=== PATIENT | female | born 1955 | race Hispanic/Latino ===

== ENCOUNTER 2018-05-30 03:14 | Emergency (ER) | payer BC ==
[~2018-05-30 03:14] MED LIST: ALBU0.63 IH; ASPI-555 PO; LISI10TA7 PO; MVIT PO
[2018-05-30] MEDS ORDERED: IPRATROPIUM/ALBUTEROL SULFATE 3 ML SOLUTION IH ONE (04:07)
[2018-05-30 04:23] LABS: BASOPHILS % (AUTO) 0.7 % (0.0-5.0); EOSINOPHILS % (AUTO) 0.2 % (0.0-8.0); HEMATOCRIT 45.1 % (36-48); LYMPHOCYTES % (AUTO) 39.5 % (21.0-51.0); MEAN CORPUSCULAR HEMOGLOBIN 27.3 pg (27.0-33.0); MEAN CORPUSCULAR HGB CONC 32.8 g/dL (32.0-36.0); MEAN CORPUSCULAR VOLUME 83.2 fL (79-99); MONOCYTES % (AUTO) 14.3 % (3.0-13.0); NEUTROPHILS % (AUTO) 45.3 % (40.0-77.0); NUCLEATED RED BLOOD CELLS 0.2 % (0.0-0.19); PLATELET COUNT (AUTO) 228 K/uL (130-400); RED BLOOD CELL COUNT(AUTO) 5.42 MIL/uL (4.00-5.50); RED CELL DISTRIBUTION WIDTH 14.4 % (11.0-15.5)
[2018-05-30 04:27] LABS: CREATININE 0.9 mg/dL (0.5-1.5); POTASSIUM 4.8 mmol/L (3.5-5.1)
[2018-05-30] MEDS ORDERED: ONDANSETRON HCL 4 MG/2 ML VIAL ONE (04:27)
[2018-05-30] MEDS ORDERED: METHYLPREDNISOLONE SOD SUCC 125MG/2ML VIAL ONE (04:27)
[2018-05-30 04:28] LABS: INR 0.96 (0.85-1.15); PARTIAL THROMBOPLASTIN TIME 27.6 SEC (26.3-35.5); PROTHROMBIN TIME 10.1 SEC (9.6-11.6)
[2018-05-30 04:31] LABS: APPEARANCE,URINE Clear (CLEAR); BILIRUBIN,URINE Negative (NEGATIVE); COLOR,URINE Yellow (YELLOW); GLUCOSE, URINE (UA) Negative (NEGATIVE); KETONES,URINE Trace mg/dL (NEGATIVE); LEUKOCYTE ESTERASE ,URINE Small (NEGATIVE); NITRATE,URINE Negative (NEGATIVE); OCCULT BLOOD,URINE Negative (NEGATIVE); PROTEIN,URINE Trace (NEGATIVE)
[2018-05-30 04:37] LABS: ALBUMIN 3.6 g/dL (3.5-5.0); BILIRUBIN,TOTAL 0.8 mg/dL (0.2-1.0); TOTAL PROTEIN, SERUM 8.3 g/dL (6.0-8.3)
[2018-05-30 04:43] LABS: B-TYPE NATRIURETIC PEPTIDE 11 pg/mL (0-100)
[2018-05-30 04:55] LABS: RBC,URINE 0-1 /HPF (0-1)
[2018-05-30 04:56] LABS: BACTERIA,URINE Few /HPF (None Seen)
[2018-05-30] MEDS ORDERED: ALBUTEROL SULFATE 0.083% 2.5 MG/3 ML INH IH ONE (05:37)
== END 2018-05-30 06:08 | disposition home or self-care (01) ==
LOC: EDH 03:14
DX: J45.909 Unspecified asthma, uncomplicated (principal); E86.9 Volume depletion, unspecified; I10 Essential (primary) hypertension; Z90.710 Acquired absence of both cervix and uterus
CPT/HCPCS: 36415; 71046; 80053; 81001; 83880; 84484; 85025; 85610; 85730; 87040 ×2; 87804 ×2; 94640 ×2; 96374; 96375; 99285; J2405; J2930

== ENCOUNTER 2021-11-22 20:27 | Emergency (ER) | payer OTHER ==
[~2021-11-22] VITALS: Ht 162.6 cm; Wt 90.3 kg
[~2021-11-22 20:27] MED LIST changes: -ASPI-555 PO; +ASPI-556 PO; +LISI10TA24 PO; -LISI10TA7 PO
[2021-11-22 20:46] LABS: BASOPHILS % (AUTO) 0.5 % (0.0-5.0); HEMATOCRIT 40.4 % (36-48); LYMPHOCYTES % (AUTO) 28.6 % (21.0-51.0); MEAN CORPUSCULAR HEMOGLOBIN 27.9 pg (27.0-33.0); MEAN CORPUSCULAR HGB CONC 32.4 g/dL (32.0-36.0); MEAN CORPUSCULAR VOLUME 86.1 fL (79-99); MONOCYTES % (AUTO) 7.1 % (3.0-13.0); NEUTROPHILS % (AUTO) 62.3 % (40.0-77.0); PLATELET COUNT (AUTO) 249 K/uL (130-400); RED BLOOD CELL COUNT(AUTO) 4.69 MIL/uL (4.00-5.50); RED CELL DISTRIBUTION WIDTH 13.5 % (11.0-15.5); WHITE BLOOD COUNT (AUTO) 11.1 K/uL (4.8-10.8)
[2021-11-22 20:56] LABS: CREATININE 0.9 mg/dL (0.5-1.5); POTASSIUM 4.5 mmol/L (3.5-5.1)
[2021-11-22 21:06] LABS: ALBUMIN 3.8 g/dL (3.5-5.0); TOTAL PROTEIN, SERUM 7.3 g/dL (6.0-8.3)
[2021-11-23 00:19] VITALS: BP 143/65
== END 2021-11-23 00:46 | disposition home or self-care (01) ==
LOC: EDH 20:27
DX: F43.0 Acute stress reaction (principal); R07.89 Other chest pain; I10 Essential (primary) hypertension; Z79.82 Long term (current) use of aspirin; Z79.899 Other long term (current) drug therapy
CPT/HCPCS: 36415; 80053; 84484; 85025; 93005

== ENCOUNTER 2023-12-11 11:09 | Emergency (ER) | payer OTHER ==
[~2023-12-11] VITALS: Ht 162.6 cm; Wt 90.3 kg
[2023-12-11] MEDS: KETOROLAC 15MG/ML VIAL (15MG/ML) IV ONE (12:21)
[2023-12-11] MEDS: ONDANSETRON 4MG INJ IVP ONE (12:21)
[2023-12-11] MEDS: MORPHINE 4 MG SYG IVP ONE (12:22)
[2023-12-11] MEDS: PROPOFOL 10 MG/ML 20ML VIAL IV SCH (12:30)
[2023-12-11] MEDS ORDERED: PROPOFOL 1000 MG/100 ML IV PRN (12:30)
[2023-12-11] MEDS: PROPOFOL 10 MG/ML 20ML VIAL IV ONE (13:22)
[2023-12-11] MEDS ORDERED: NAPR-1196 PO (13:33)
[2023-12-11 14:35] VITALS: BP 124/58; PULSE 62; RESP 12; O2SAT 98
== END 2023-12-11 14:38 | disposition home or self-care (01) ==
LOC: EDH 11:09
DX: S52.612A Displaced fracture of left ulna styloid process, initial encounter for closed fracture (principal); S52.512A Displaced fracture of left radial styloid process, initial encounter for closed fracture; I10 Essential (primary) hypertension; Z79.899 Other long term (current) drug therapy; Z79.82 Long term (current) use of aspirin; Z90.710 Acquired absence of both cervix and uterus; Z98.890 Other specified postprocedural states; W01.0XXA Fall on same level from slipping, tripping and stumbling without subsequent striking against object, initial encounter; Y93.89 Activity, other specified; Y92.89 Other specified places as the place of occurrence of the external cause; Y99.8 Other external cause status
CPT/HCPCS: 25605; 99152; 99153; 99285; 73100; 73090; 73110; 96374; 96375; J2704; J2405; J2270; J1885; G0500; J3490

== ENCOUNTER 2024-08-20 13:25 | Observation (INO) | payer OTHER ==
[~2024-08-20] VITALS: Ht 162.6 cm; Wt 84.4 kg
[~2024-08-20 13:25] MED LIST changes: +NAPR-1196 PO
[2024-08-20] MEDS: ketOROlac 15MG/ML VIAL (15MG/ML) IV ONE (14:01)
[2024-08-20 14:06] LABS: APPEARANCE,URINE CLEAR (CLEAR); BILIRUBIN,URINE NEGATIVE (NEGATIVE); GLUCOSE, URINE (UA) NEGATIVE (NEGATIVE); KETONES,URINE NEGATIVE (NEGATIVE); LEUKOCYTE ESTERASE ,URINE NEGATIVE Leu/uL (NEGATIVE); NITRATE,URINE NEGATIVE (NEGATIVE); OCCULT BLOOD,URINE NEGATIVE (NEGATIVE); PROTEIN,URINE NEGATIVE (NEGATIVE); UROBILINOGEN,URINE 0.2 mg/dL (0.2-1.0)
[2024-08-20 14:07] LABS: BASOPHILS # (AUTO) 0.02 K/uL (0.00-0.20); BASOPHILS % (AUTO) 0.3 % (0.0-5.0); EOSINOPHILS # (AUTO) 0.01 K/uL (0.00-0.70); EOSINOPHILS % (AUTO) 0.1 % (0.0-8.0); IMMATURE GRANULOCYTE ABSOLUTE 0.01 K/uL (0-1); LYMPHOCYTES # (AUTO) 1.8 K/uL (1.0-4.8); MEAN CORPUSCULAR HEMOGLOBIN 27.9 pg (27.0-33.0); MEAN CORPUSCULAR VOLUME 79.7 fL (79-99); MONOCYTES # (AUTO) 0.7 K/uL (0.1-1.0); MONOCYTES % (AUTO) 9.5 % (3.0-13.0); NEUTROPHILS # (AUTO) 5.2 K/uL (1.8-7.7); PLATELET COUNT (AUTO) 231 K/uL (130-400); RED BLOOD CELL COUNT(AUTO) 5.02 MIL/uL (4.00-5.50); RED CELL DISTRIBUTION WIDTH 13.2 % (11.0-15.5); WHITE BLOOD COUNT (AUTO) 7.8 K/uL (4.8-10.8)
[2024-08-20 14:10] LABS: ADD UA MICROSCOPIC NO; COLOR,URINE LIGHT-YELLOW (YELLOW)
--- NOTE | 2024-08-20 14:11 | ERN ---
General Chief Complaint: Cough Stated Complaint: FLU Time Seen by MD: 13:25 History of Present Illness Initial Comments 69-year-old female who presents for generalized weakness. She had influenza about a week ago, she was positive initially had fevers. She reports that since then she continues with cough and generalized weakness and fatigue. She has been p.o. tolerant. No vomiting no diarrhea. Allergies: Coded Allergies: No Known Drug Allergies (Unverified Allergy, Unknown, 06/21/15) Home Meds Reported Medications Atorvastatin Calcium (LIPITOR) 10 Mg Tab, 1 TAB PO DAILY for 30 Days, #30 TAB 0 Refills 08/20/24 L.acidoph & Paracasei,B.lactis (Probiotic) 10 Billion Cell Capsule, 1 CAP PO DAILY for 10 Days, #30 CAP 0 Refills 08/20/24 Lisinopril (Lisinopril) 20 Mg Tablet, 20 MG PO DAILY, TAB 08/20/24 Discontinued Reported Medications Albuterol Sulfate (Albuterol Sulfate) 0.63 Mg/3 Ml Vial.neb, 0.63 MG IH QID, INH 09/03/15 Multivitamins,Therapeutic (Multivitamin Tablet) 1 Tab Tab, 1 TAB PO DAILY, TAB 06/21/15 Aspirin (Aspir 81) 81 Mg Tablet.dr, 81 MG PO DAILY, TAB 06/21/15 Lisinopril (Lisinopril) 10 Mg Tablet, 10 MG PO DAILY, TAB 06/21/15 Past Medical History Past Medical History: High Cholesterol, Hypertension Past Surgical History: Hysterectomy Surgical History Other: BACK SURGERY Social History Social History: Other ROS Dictation CONSTITUTIONAL: Fatigue and weakness HEAD/FACE: No signs of trauma. EENT: No eye pain, no blurred vision, no tearing, no double vision, no ear pain, no ear discharge, no nose pain, no nasal congestion, no throat pain, no throat swelling, no mouth pain. RESPIRATORY: No cough, no orthopnea, no SOB, no stridor, no wheezing. CARDIOVASCULAR: No chest pain, no edema, no palpitations, no syncope. GASTROINTESTINAL/ABDOMINAL: No abdominal pain, no constipation, no diarrhea, no nausea, no vomiting. GENITOURINARY: No abnormal discharge, no dysuria, no frequent urination, no hematuria. No complaints of pain in the genitals. MUSCULOSKELETAL: No back pain, no gout, no joint pain, no joint swelling, no muscle pain, no muscle stiffness, no neck pain. INTEGUMENTARY: No change in color, no change in hair/nails, no dryness, no lesion, no lumps, no rash. NEUROLOGICAL/PSYCH: No anxiety, not depressed, no emotional problem, no headache, no numbness, no pre-existing deficit, no history of seizures, no tremors, no weakness. HEMATOLOGIC/LYMPHATIC: Not anemic, no history of blood clots, no apparent bleeding, no bruising, glands not swollen. All Systems Negative, Except as Noted. Physical Exam Physical Exam Dictation VITAL SIGNS: Reviewed. GENERAL APPEARANCE: Alert, oriented x3, no acute distress HEAD AND FACE: Non-traumatic. EYES: PERRL, pink conjunctivas, eyelid no trauma, anterior chamber clear. EARS: Pinnas intact and no signs of trauma or erythema. Ear canals clear and no discharge. TMs no erythema. NOSE: No discharge, no bleeding. OROPHARYNX: Mouth normal, teeth no caries, tongue pink. Pharynx clear, no elodia thema. Tonsils no exudates, no abscesses noted. Mucous membrane moist. NECK: Supple, non-tender, no thyromegaly, no masses, no JVD, no bruits. BREAST: Deferred. CHEST: No tenderness, no crepitus, no paradoxical movement, no retractions. LUNGS: Clear, well-ventilated, symmetric, no rales, no wheezing, no rhonchi, no stridor, good breath sounds bilaterally. HEART: Regular rate, regular rhythm, no murmur, no gallops. VASCULAR: No peripheral edema. ABDOMEN: Soft, positive bowel sounds, nondistended, no guarding, nontender, no rebound, no masses no hepatomegaly, no splenomegaly, no Patel's sign, no hernias. RECTAL: Deferred. GENITAL: Deferred. NEUROLOGICAL: Normal speech, gross motor function intact, gross sensory function intact. MUSCULOSKELETAL: Neck nontender, full range of motion, back nontender, full range of motion. EXTREMITIES: Nontender, full range of motion. SKIN: Color pink, dry, no turgor, no rash, no lacerations, no abrasions, no contusions. LYMPHATICS: Deferred. Results Laboratory and Microbiology Lab and Micro Result [facility] CC: Fatigue dizziness weakness Historian: Patient Comorbidities: Dyslipidemia, hypertension, hysterectomy Limitations by social determinants of health: None Differential diagnosis: Dehydration electrolyte abnormality pneumonia, other. Vital signs: Stable remained stable your Clinical exam is unremarkable other than generalized fatigue and weakness Labs (independently ordered and interpreted by me): The CBC is normal. Electrolytes show sodium 122, chloride 87, potassium 2.9, consistent with dehydration. Rest of the electrolytes are stable, troponin is stable, CRP is stable BNP stable procalcitonin stable. Flu SARS negative. CXR (independently interpreted by me): No cardiomegaly focal infiltrates or pleural effusion. Treatment in ED: IV normal saline, IV potassium Plan: We will admit for hyponatremia, dehydration, hy pokalemia correction. Patient was agreeable with the plan Consultation: Hospitalist for admission. ED Course DX & DISP Disposition: Inpatient Departure Impression: Primary Impression: Hyponatremia Additional Impressions: Hypokalemia, Dehydration Critical Time: 30 minutes (Critical Care Procedure NoteAuthorized and Performed by: meTotal critical care time: Approximately 36 minutesDue to a high probability of clinically significant, life threatening deterioration, the patient required my highest level of preparedness to intervene emergently and I personally spent this critical care time directly and personally managing the patient. This critical care time included obtaining a history; examining the patient; pulse oximetry; ordering and review of studies; arranging urgent treatment with development of a management plan; evaluation of patient's response to treatment; frequent reassessment; and, discussions with other providers.This critical care time was performed to assess and manage the high probability of imminent, life-threatening deterioration that could result in multi-organ failure. It was exclusive of separately billable procedures and treating other patients and teaching time.Please see MDM section and the rest of the note for further information on patient assessment and treatment.) Condition: Stable Referrals: EUNICE SANDOVAL MD (PCP) FRANKLIN BAXTER DO Aug 20, 2024 14:11
--- NOTE | 2024-08-20 14:14 | HMCIMG ---
Exam Type: CHEST 1VW Clinical Information: cough Comparison: None Findings: The lungs are clear of infiltrates. The heart is normal in size. The bony and soft tissue structures of the chest are unremarkable. Impression: Clear lungs.
[2024-08-20 14:23] LABS: CREATININE 0.9 mg/dL (0.5-1.0); MAGNESIUM 1.8 mg/dL (1.80-2.40)
[2024-08-20 14:23] LABS: COVID19 (SARS ANTIGEN RAPID) PRESUMPTIVE NEGATIVE (NEGATIVE); INFLUENZA TYPE A Negative For Type A (NEGATIVE); INFLUENZA TYPE B Negative For Type B (NEGATIVE)
[2024-08-20 14:26] LABS: B-TYPE NATRIURETIC PEPTIDE 26 pg/mL (0-100)
[2024-08-20 14:28] LABS: POTASSIUM 2.9 mmol/L (3.5-5.1)
[2024-08-20] MEDS: 0.9%NACL 1000ML 1,000 ML IV SCH (14:37)
--- NOTE | 2024-08-20 15:13 | EKG ---
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
[2024-08-20] MEDS: PoTASSium chloRIDE 20MEQ/100ML 100 ML IV PRN (15:21)
[2024-08-20] MEDS ORDERED: acetaMINOPHEN 650 MG SUPPOSITORY RC PRN (15:30)
--- NOTE | 2024-08-20 15:34 | HP ---
[facility] HISTORY & PHYSICAL Date Patient Seen: Aug 20, 2024 Time of Visit: 15:34 Supervising Physician: Ravinder Arauz MD Primary Care Physician: Rolando Vasques MD Outpatient Specialists: [ ] Inpatient Consults: NONE PROBLEM LIST: Severe hypokalemia, POA Electrolyte derangement (Hyponatremia, Hypochloremia) Dehydration POA Suspected superimposed bacterial cap, POA Essential hypertension Hyperlipidemia Hepato steatosis Recent influenza infection one week ago s/p 3 days of Tamiflu (does not tolerate Tamiflu per pt) Obesity BMI of 31.9 HPI: This is a 69-year-old obese female with a past medical history of essential hypertension and elevated cholesterol She reports approximately four days ago she was diagnosed with the influenza and was given Tamiflu as prescription for outpatient. As per patient she could not complete a total treatment of the Tamiflu for five days due to did not tolerate the side effects which were genera lized body weakness dizziness and nausea. She presented to the ED today for evaluation of generalized weakness. She reports one week ago initially she had fever, fatigue and generalized weakness continue to worsened. As per patient she has been unable to tolerate p.o. food, but denies any nausea vomiting or diarrhea. On arrival to the ED patient was hemodynamically stable and afebrile saturating 97% on room air. CBC was unremarkable but on chemistry potassium was 2.9 chloride 87 sodium 122 and glucose 128 mg/dL. Urinalysis unremarkable. Influenza and COVID-19 negative. Per ED physician would like patient admitted for severe hypokalemia and dehydration. On assessment patient is awake alert and oriented x3. She had a nonproductive cough and sore throat. She reports generalized weakness. Denies nausea vomiting or diarrhea. She denies any chest pain palpitations or shortness for breath at this time. I informed patient on current clinical findings and reason for admission. Patient agrees with admission and plan of care. She will be admitted to medical-surgical with telemetry monitoring due to severe hypokalemia and replace electrolytes as needed. We will hydrate patient with the NS IV fluids. Patient has been both verbalized understanding. Home medications will to lisinopril and atorvastatin has been resumed. Patient will be admitted under observation likely to be discharged in the next 24-48 hours. PAST MEDICAL HX: see above PAST SURGICAL HX: noncontributory SOCIAL HISTORY: No tobacco, ETOH, or illicit drug use Coded Allergies: No Known Drug Allergies (Unverified Allergy, Unknown, 06/21/15) REVIEW OF SYSTEMS: 12 point ROS reviewed with patient. Pertinent positives mentioned above. Otherwise negative. PHYSICAL EXAM: GENERAL: alert, weak, awake oriented x 3 HEENT: EOMI, Sclera non icteric, moist mucosa NECK: Supple, no JVD, trachea midline LUNGS: Rhonchi breath sounds bilaterally. No wheezes HEART: Regular rate and rhythm. Normal S1 and S2, without murmurs ABD: Abdomen soft, nontender. Bowel sounds present EXT: No clubbing cyanosis or edema NEURO: Alert and oriented to person, follows commands Vital Signs (last 8hr) Date Time Temp Pulse Resp B/P (MAP) Pulse Ox O2 Delivery O2 Flow Rate FiO2 08/20/24 13:46 97.5 82 16 119/74 97 Room Air* 0 21 08/20/24 13:35 97.5 82 16 119/74 97 Room Air 0 LABS: Hematology Labs: Test 08/20/24 14:00 Range/Units White Blood Count 7.8 4.8-10.8 K/uL Red Blood Count 5.02 4.00-5.50 MIL/uL Hemoglobin 14.0 12.0-16.0 g/dL Hematocrit 40.0 36-48 % Mean Corpuscular Volume 79.7 79-99 fL Mean Corpuscular Hemoglobin 27.9 27.0-33.0 pg Mean Corpuscular Hemoglobin Concent 35.0 32.0-36.0 g/dL Red Cell Distribution Width 13.2 11.0-15.5 % Platelet Count 231 130-400 K/uL Mean Platelet Volume 9.6 7.5-10.5 fL Immature Granulocyte % (Auto) 0.1 0-1 % Neutrophils (%) (Auto) 67.0 40.0-77.0 % Lymphocytes (%) (Auto) 23.0 21.0-51.0 % Monocytes (%) (Auto) 9.5 3.0-13.0 % Eosinophils (%) (Auto) 0.1 0.0-8.0 % Basophils (%) (Auto) 0.3 0.0-5.0 % Neutrophils # (Auto) 5.2 1.8-7.7 K/uL Lymphocytes # (Auto) 1.8 1.0-4.8 K/uL Monocytes # (Auto) 0.7 0.1-1.0 K/uL Eosinophils # (Auto) 0.01 0.00-0.70 K/uL Basophils # (Auto) 0.02 0.00-0.20 K/uL Absolute Immature Granulocyte (auto 0.01 0-1 K/uL Nucleated Red Blood Cells 0.0 0.0-0.19 % Chemistry Labs: Test 08/20/24 14:00 Range/Units Sodium Level 122 L 136-145 mmol/L Potassium Level 2.9 *L 3.5-5.1 mmol/L Chloride Level 87 *L 101-111 mmol/L Carbon Dioxide Level 32 21-32 mmol/L Blood Urea Nitrogen 11 7-18 mg/dL Creatinine 0.9 0.5-1.0 mg/dL Glomerular Filtration Rate Calc 70 >90 mL/min Random Glucose 128 H 70-105 mg/dL Total Calcium 8.6 8.5-10.1 mg/dL Magnesium Level 1.80 1.80-2.40 mg/dL Total Creatine Kinase 41 21-232 U/L Troponin I High Sensitivity 4.9 4-50 ng/L C-Reactive Protein, Quantitative 2.50 0.5-3.0 mg/L B-Type Natriuretic Peptide 26 0-100 pg/mL Procalcitonin < 0.05 L 0.05-0.5 ng/mL DIAGNOSTICS / RADIOLOGY RESULTS: IMAGING REPORT Signed PATIENT: PATY TEJEDA MR#: [id number] : 1955 SEX: F AGE: 69 LOCATION: [facility] ORDER [id number] STATUS: REG ER REPORT#: [id number] SERVICE [id number] REASON: cough ORDERING PHYSICIAN: FRANKLIN BAXTER DO PROCEDURE: CXR1VW - CHEST 1VW Exam Type: CHEST 1VW Clinical Information: cough Comparison: None Findings: The lungs are clear of infiltrates. The heart is normal in size. The bony and soft tissue structures of the chest are unremarkable. Impression: Clear lungs. DICTATED BY: MATTY AGUIAR MD DATE: 08/20/241410 ELECTRONICALLY SIGNED BY: MATTY AGUIAR MD DATE: 08/20/241413 [ ] PLAN NS at 75ml/HR Potassium goal of 4 Magnesium goal of 2 TSH and hemoglobin A1c in the morning Morning labs including CBC and BNP Monitor for fevers Empiric antibiotic with azithromycin and Rocephin for suspected superimposed bacterial pneumonia Robitussin DM q.6 hours p.r.n. for cough Cepacol sore throat lozenge q.4 hours p.r.n. NEURO: Minimize central acting medications as possible. Maintain fall precautions, adequate lighting during the day PULMONARY: Supplemental 02 as needed. Maintain aspiration precautions at all times CARDIOVASCULAR: Follow hemodynamics. Vital signs per facility protocol GI & NUTRITION: Continue with nutritional support. Continue stool softeners and laxatives as needed. KIDNEYS & ELECTROLYTES: Strict monitoring of intake, output and overall fluid balance. Avoid nephrotoxic medications to the extent possible. Medications to be dosed according to renal function. Monitor electrolytes and replace as needed ENDOCRINE: Maintain blood glucose between 100-180 at all times. Hypoglycemia protocol in place INFECTIOUS DISEASE: Trend temperature, WBC and procalcitonin level Follow cultures, deescalate antibiotics as soon as possible. Panculture if new onset fever ONCOLOGY/HEMATOLOGY/COAGULATION: Monitor for s/s of bleeding Monitor hemoglobin, coagulation studies as needed SKIN: Pressure ulcer prevention per facility protocol Specialty mattress ORTHO/REHAB: Continue PT/OT Prophylaxis: Continue GI and DVT prophylaxis Code Status: Full Resuscitation Disposition: TBD Other: Total patient care time exceeds 35 minutes excluding all procedures. DEBBIE OSEI Aug 20, 2024 15:34
[2024-08-20] MEDS ORDERED: PoTASSium chloRIDE 20MEQ/100ML 100 ML IV PRN ×2 (16:00)
[2024-08-20] MEDS ORDERED: PoTASSium chl 10% ELIXIR 20MEQ 20 MEQ/15 ML UDCUP PO PRN (16:00)
--- NOTE | 2024-08-20 16:18 | NUR ---
report given to Rocío SMITH patient to go to room 327
[2024-08-20 16:30] VITALS: BP 131/63; PULSE 70; RESP 20; TEMP 98.3
[2024-08-20] MEDS: SODIUM CHLORIDE 3% FOR INHALATION 4 ML/AMP VIAL.NEB IH ONE (16:49)
[2024-08-20] MEDS ORDERED: L.AC1CAP6 PO (17:07)
[2024-08-20] MEDS ORDERED: LISI20TA24 PO (17:07)
[2024-08-20] MEDS ORDERED: ATOR10 PO (17:09)
[2024-08-20 17:11] VITALS: O2SAT 98
[2024-08-20] MEDS: CEFTRIAXONE 2GM VIAL IVPB SCH (18:13)
[2024-08-20] MEDS: MAGNESIUM 2GM PREMIX 50ML 50 ML IV PRN (18:15)
[2024-08-20] MEDS: AZITHROMYCIN 250 MG TABLET PO ONE (18:15)
[2024-08-20] MEDS: PoTASSium chloRIDE 20MEQ ER 20 MEQ ERTAB PO PRN (18:16)
[2024-08-20] MEDS: guaiFENesin-DM 200/20MG 10ML PO PRN (18:18)
[2024-08-20] MEDS: BENZOCAINE/MENTH/CETYLPYRD CL 1 EACH LOZENGE MM PRN (18:19)
[2024-08-20] MEDS: FAMOTIDINE 20MG TAB PO SCH (19:58)
[2024-08-20 20:00] VITALS: BP 139/70; PULSE 74; RESP 18; TEMP 97.6; O2SAT 96
[2024-08-20] MEDS: BENZONATATE 100 MG CAPSULE PO ONE (21:48)
[2024-08-20] MEDS ORDERED: SODIUM CHLORIDE 3% FOR INHALATION 4 ML/AMP VIAL.NEB IH ONE (22:37)
[2024-08-20 23:31] VITALS: BP 127/68; PULSE 74; RESP 19; TEMP 98.1
[2024-08-21] MEDS: 0.9%NACL 1000ML 1,000 ML IV SCH (00:28)
[2024-08-21 04:00] VITALS: BP 126/89; PULSE 64; RESP 19; TEMP 97.2
[2024-08-21 05:31] LABS: BASOPHILS # (AUTO) 0.01 K/uL (0.00-0.20); BASOPHILS % (AUTO) 0.2 % (0.0-5.0); EOSINOPHILS # (AUTO) 0.02 K/uL (0.00-0.70); EOSINOPHILS % (AUTO) 0.4 % (0.0-8.0); HEMATOCRIT 33.9 % (36-48); IMMATURE GRANULOCYTE ABSOLUTE 0.01 K/uL (0-1); LYMPHOCYTES # (AUTO) 1.7 K/uL (1.0-4.8); LYMPHOCYTES % (AUTO) 32.6 % (21.0-51.0); MEAN CORPUSCULAR HGB CONC 34.5 g/dL (32.0-36.0); MEAN CORPUSCULAR VOLUME 81.1 fL (79-99); MONOCYTES # (AUTO) 0.6 K/uL (0.1-1.0); MONOCYTES % (AUTO) 12.3 % (3.0-13.0); NEUTROPHILS # (AUTO) 2.8 K/uL (1.8-7.7); NEUTROPHILS % (AUTO) 54.3 % (40.0-77.0); PLATELET COUNT (AUTO) 161 K/uL (130-400); RED BLOOD CELL COUNT(AUTO) 4.18 MIL/uL (4.00-5.50); RED CELL DISTRIBUTION WIDTH 13.4 % (11.0-15.5); WHITE BLOOD COUNT (AUTO) 5.2 K/uL (4.8-10.8)
[2024-08-21 05:57] LABS: B-TYPE NATRIURETIC PEPTIDE 88 pg/mL (0-100); CREATININE 0.7 mg/dL (0.5-1.0); MAGNESIUM 2.1 mg/dL (1.80-2.40); PHOSPHORUS 2.8 mg/dL (2.5-4.9); POTASSIUM 4.2 mmol/L (3.5-5.1); THYROID STIMULATING HORMONE 0.07 uIU/mL (0.36-3.74)
[2024-08-21 07:23] VITALS: O2SAT 96
[2024-08-21 08:00] VITALS: BP 118/58; PULSE 73; RESP 18; TEMP 97.8
[2024-08-21] MEDS: atorVAStatin 10 MG TABLET PO SCH (08:52)
[2024-08-21] MEDS: LISINOPRIL 20 MG TABLET PO SCH (08:53)
[2024-08-21] MEDS: AZITHROMYCIN 250 MG TABLET PO SCH (08:54)
[2024-08-21] MEDS: ENOXAPARIN SODIUM 40 MG/0.4 ML SYRINGE SQ SCH (08:54)
--- NOTE | 2024-08-21 11:03 | NUR ---
D/C INSTRUCTIONS PROVIDED TO PATIENT AND SPOUSE ACKNOWLEDGED. SHIRA OOR
--- NOTE | 2024-08-21 13:07 | DS ---
[facility] DISCHARGE SUMMARY Date Patient Seen: Aug 21, 2024 Time of Visit: 13:01 Supervising Physician: Dr. Ravinder Arauz Primary Care Physician: Rolando Vasques MD Outpatient Specialists: [ ] Inpatient Consults: NONE HOSPITAL COURSE: HPI (per admitting provider) This is a 69-year-old obese female with a past medical history of essential hypertension and elevated cholesterol She reports approximately four days ago she was diagnosed with the influenza and was given Tamiflu as prescription for outpatient. As per patient she could not complete a total treatment of the Tamiflu for five days due to did not tolerate the side effects which were generalized body weakness dizziness and nausea. She presented to the ED today for evaluation of generalized weakness. She reports one week ago initially she had fever, fatigue and generalized weakness continue to worsened. As per patient she has been unable to tolerate p.o. food, but denies any nausea vomiting or diarrhea. On arrival to the ED patient was hemodynamically stable and afebrile saturating 97% on room air. CBC was unremarkable but on chemistry potassium was 2.9 chloride 87 sodium 122 and glucose 128 mg/dL. Urinalysis unremarkable. Influenza and COVID-19 negative. Per ED physician would like patient admitted for severe hypokalemia and dehydration. On assessment patient is awake alert and oriented x3. She had a nonproductive cough and sore throat. She reports generalized weakness. Denies nausea vomiting or diarrhea. She denies any chest pain palpitations or shortness for breath at this time. I informed patient on current clinical findings and reason for admission. Patient agrees with admission and plan of care. She will be adm itted to medical-surgical with telemetry monitoring due to severe hypokalemia and replace electrolytes as needed. We will hydrate patient with the NS IV fluids. Patient has been both verbalized understanding. Home medications will to lisinopril and atorvastatin has been resumed. Patient will be admitted under observation likely to be discharged in the next 24-48 hours. The patient was treated for the following problems: Patient with a recent diagnosis of the flu, stated that she was unable to complete her Tamiflu regimen. Admitted for general body weakness and nausea. On admission she was found to be dehydrated, electrolyte imbalances and hypochloremia. Patient's electrolytes were replaced over the last 24 hours, fluids rehydrated. Upon evaluation patient was feeling back to baseline, hydration status is normal. Patient was advised upon discharge that she was flu negative at this time, to increase fluid intake and remain well hydrated while she recovers. Patient wanted recommendations for something to help her sleep, advised [id number] melatonin 3 mg before bedtime. Patient expressed understanding, recommendations to visit PCP in the next three days to ensure resolution of symptoms. 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 PCP notified of patients admission, hospital course and discharge. PHYSICAL EXAM: GENERAL: alert, weak, awake oriented x 3 HEENT: EOMI, Sclera non icteric, moist mucosa NECK: Supple, no JVD, trachea midline LUNGS: Rhonchi breath sounds bilaterally. No wheezes HEART: Regular rate and rhythm. Normal S1 and S2, without murmurs ABD: Abdomen soft, nontender. Bowel sounds present EXT: No clubbing cyanosis or edema NEURO: Alert and oriented to person, follows commands FOLLOW-UP: Follow-up with PCP in 2-3 days RECOMMENDATIONS: See Discharge Instructions This case was seen and discussed with my supervising physician. More than 30 minutes spent on discharge process, including evaluation of the patient, discussion with nursing staff, medication reconciliation and follow-up appointm KATARINA Marte Aug 21, 2024 13:07
== END 2024-08-21 11:50 | disposition home or self-care (01) ==
LOC: EDH 13:25 → EDHIP 13:26 → 3DH 16:30
PROVIDERS: ADMIT Internal Medicine Pulmonary Disease; ATTEND Internal Medicine Pulmonary Disease
DX: E87.1 Hypo-osmolality and hyponatremia (principal); Z20.822 Contact with and (suspected) exposure to COVID-19; E86.0 Dehydration; E87.8 Other disorders of electrolyte and fluid balance, not elsewhere classified; E87.6 Hypokalemia; K76.0 Fatty (change of) liver, not elsewhere classified; E78.5 Hyperlipidemia, unspecified; I10 Essential (primary) hypertension; E66.9 Obesity, unspecified; Z90.710 Acquired absence of both cervix and uterus; Z68.31 Body mass index [BMI] 31.0-31.9, adult; Z98.890 Other specified postprocedural states; Z79.899 Other long term (current) drug therapy
CPT/HCPCS: 96365; 96366; 96375; 96367; 96368; 82550; 83735 ×2; 84484; 80048 ×2; 83880 ×2; 85025 ×2; 87071; 87205; 87804 ×2; 86140; 87426; 81003; 36415 ×2; 71045; 99291; 93005; 94640; 84145; 96372; 96361; 84443; 84100; G0378 ×20; J3475; J7030 ×2; J0696; J3480; J1885; J1650